=== PATIENT | male | born 2000 | race Caucasian/White ===

== ENCOUNTER 2021-11-19 09:28 | Emergency (ER) | payer MEDICAID, SELFPAY ==
--- NOTE | ~2021-11-19 | CT_ITS ---
EXAMINATION: CT abdomen pelvis w con DATE: 11/19/2021 11:05 INDICATION: Upper abdominal pain. Blood in stool. TECHNIQUE: Computed tomography (CT) of the abdomen and pelvis was performed with 100 CC Omnipaque 350 intravenous contrast. Automated exposure control and iterative reconstruction technique were employe d. Exam dose: 429.82 mGy-cm total exam DLP. COMPARISON: None. FINDINGS: The lung bases are clear. Normal heart size. No pericardial or pleural effusion. Liver, gallbladder, bile ducts, spleen, pancreas, pancreatic duct and adrenal glands as well as the k idneys appear normal. Normal caliber of the abdominal aorta. No intraperitoneal or retroperitoneal or pelvic mass lesion or adenopathy or ascites. The urinary bladder, prostate gland and seminal vesicles are unremarkable. Normal appendix. No bowel obstruction, bowel wall thickening, pneumatosis or intraperitoneal free air is detected. Included skeletal structures are unremarkable. IMPRESSION: No significant abnormality Reviewed, dictated and finalized at [facility]. Reviewed, dictated and finalized at [facility]. IMPRESSION: No significant abnormality
[2021-11-19 10:03] VITALS: BP 139/75; PULSE 74; RESP 17; TEMP 36.7; O2SAT 100
--- NOTE | 2021-11-19 10:18 | PC.NURSE ---
pt unable to provide urine sample at this time. pt refusing straight cath.
[2021-11-19 10:29] LABS: Basophils Percent Auto 0.4 % (0.2-1.2); Eosinophils Absolute Auto 0.1 K/mm3 (0-0.3); Hematocrit 43.2 % (42.0-52.0); Hemoglobin 14.8 g/dL (14.0-18.0); Immature Granulocyte Absolute 0.02 K/mm3 (0.00-0.031); Immature Granulocyte Percent A 0.3 % (0-0.5); Lymphocytes Absolute Auto 1.88 K/mm3 (0.9-3.2); Lymphocytes Percent Auto 27.5 % (18.3-44.2); Mean Corpuscular HGB Conc 34.3 g/dl (32-36); Mean Corpuscular Hemoglobin 30.4 pg (26-34); Mean Corpuscular Volume 88.7 fl (80-100); Mean Platelet Volume 10.6 fl (7.4-10.4); Monocytes Absolute Auto 0.5 K/mm3 (0.1-0.6); Monocytes Percent Auto 7.7 % (2.6-8.5); Neutrophils Absolute Auto 4.3 K/mm3 (1.3-6.7); Neutrophils Percent Auto 63.1 % (45.5-73.1); Platelet Count Result 158 k/mm3 (150-375); Red Blood Count 4.87 M/mm3 (4.6-6.20); Red Cell Distribution Width 12.6 % (11.5-14.5); White Blood Count 6.8 K/mm3 (4.5-10.0)
[2021-11-19 10:40] LABS: Prothrombin Time 12.3 Seconds (11.1-14.7)
[2021-11-19 10:41] LABS: Partial Thromboplastin Time 30.6 SECONDS (22.3-36.8)
[2021-11-19 10:45] LABS: Alanine Aminotransferase 40 U/L (6-50); Albumin Level 4.7 g/dL (3.5-5.1); Alkaline Phosphatase 66 U/L (38-126); Anion Gap 13 mmol/L (8-16); Aspartate Amino Transferase 31 U/L (17-59); Bilirubin,Total 0.3 mg/dL (0.2-1.3); Blood Urea Nitrogen 17 mg/dL (9-20); Calcium 9.1 mg/dL (8.4-10.2); Carbon Dioxide 25 mmol/L (22-30); Chloride 104 mmol/L (98-107); Estimated CRCL calculation 119 ml/min; Estimated Glomerular Filt Rate > 60; Glucose 102 mg/dL (65-110); Lipase 72 U/L (23-300); Potassium 3.9 mmol/L (3.4-5.0); Sodium 142 mmol/L (137-145)
--- NOTE | 2021-11-19 11:25 | ED.ABDPAIN ---
HPI - Abdominal Pain General Chief Complaint: Abdominal Pain Stated Complaint: abd pain Time Seen by Provider: 11/19/21 09:34 Source: RN notes reviewed History of Present Illness HPI narrative: Patient presents emerged department from home for abdominal pain. Patient states has been having intermittent abdominal pain in the upper abdomen for the past 2 months the pain is described as aching and burning in nature and it does not occur daily he states that with this he has been noticing some intermittent blood in the stool for the past month he states the blood will be bright red in nature and will be with wiping only he denies any fevers or chills nausea vomiting diarrhea or any other symptoms Related Data Allergies Allergy/AdvReac Type Severity Reaction Status Date / Time No Known Allergies Allergy Verified 11/19/21 10:08 Review of Systems Review of Systems: Gen.: Denies fevers or chills ENT: Denies congestion Respiratory: Denies shortness of breath or cough CV: Denies chest pain or palpitations GI: See HPI Musculoskeletal: Denies back pain or muscle pain Neuro: Denies numbness, tingling, weakness or focal weakness Skin: Denies rash Except as documented, all other systems reviewed and negative [facility] Past Medical History Medical History (Updated 11/19/21 @ 11:29 by Gilmar Lo DO) Patient denies significant medical history Social History Social History (Updated 11/19/21 @ 11:26 by Gilmar Lo DO) Smoking status: Never smoker Exam Narrative: APPEARANCE: No acute distress, nontoxic, resting in bed EYES: EOMI HEENT: Normocephalic, atraumatic, OMM RESPIRATORY: No respiratory distress Clear to auscultation bilaterally with no rhonchi wheezing or rales. CARDIOVASCULAR: Regular rate and rhythm without murmurs rubs or gallops. ABDOMINAL: Soft, nondistended tender palpation epigastric region no tenderness right upper quadrant, left upper quadrant, right lower quadrant left lower quadrant no rebound or guarding Rectal: No hemorrhoids or fissures small amount of soft light brown stool that is Hemoccult negative MUSCULOSKELETAl: Moves all extremities. No clubbing, cyanosis or edema. NEURO: Awake and alert. Following commands, speech normal, no focal deficits SKIN:: Warm, dry. No rashes lesions or abrasions PSYCHIATRIC: Normal affect/mood, Course Course Emergency Course: Patient states that they are feeling much better at this time. States abdominal pain has resolved. Repeat abdominal exam shows the patient's abdomen to be soft and nontender. Discussed with patient results of workup and diagnosis. Discussed need for follow-up with primary care physician, reasons to return to the emergency department in proper use of medication. Patient understands and agrees to current treatment plan. Discussed with patient need for follow-up with GI for further evaluation Vital Signs Vital signs: Vital Signs Temperature 98.1 F 11/19/21 10:03 Pulse Rate 74 11/19/21 10:03 Respiratory Rate 17 11/19/21 10:03 Blood Pressure 139/75 11/19/21 10:03 Pulse Oximetry 100 11/19/21 10:03 Oxygen Delivery Room Air 11/19/21 10:03 Temperature 98.1 F 11/19/21 10:03 Pulse Rate 74 11/19/21 10:03 Respiratory Rate 17 11/19/21 10:03 Blood Pressure 139/75 11/19/21 10:03 Pulse Oximetry 100 11/19/21 10:03 Oxygen Delivery Room Air 11/19/21 10:03 MDM - Abdominal Pain MDM Narrative Medical decision making narrative: Patient's abdomen is soft without significant pain or signs of surgical abdomen on serial exams. Lab and x-ray evaluations are reviewed and patient is felt to be a reasonable candidate for outpatient management. Patient was instructed as to limitations of x-ray and laboratory evaluation and encouraged to return to ED or primary physician for repeat exam in 12 hours if continued or worsening pain Lab Data Result diagrams: 11/19/21 10:14 11/19/21 10:14 Labs: Lab Re
[2021-11-19 11:27] VITALS: BP 132/76; PULSE 76; RESP 16; O2SAT 99
== END 2021-11-19 11:48 | disposition home or self-care (01) ==
PROVIDERS: Emergency Provider Emergency Medicine
DX: R10.13 Epigastric pain (principal); K62.5 Hemorrhage of anus and rectum
CPT/HCPCS: 36415; 74177; 80053; 83690; 85025; 85610; 85730; 99284; Q9967

== ENCOUNTER 2021-12-04 16:56 | Emergency (ER) | payer BC, SELFPAY ==
--- NOTE | ~2021-12-04 | XR_ITS ---
EXAMINATION: XR foot LT min 3V DATE: 12/04/2021 17:28 INDICATION: Left foot pain and swelling. Injury. TECHNIQUE: 4 views of left foot were obtained. COMPARISON: None. FINDINGS: Bone alignment is normal. No fracture. There is mild osteoarthritis of first metatarsophala ngeal joint. IMPRESSION: 1. Mild osteoarthritis of first metatarsophalangeal joint. Reviewed, dictated and finalized at location [facility].
--- NOTE | ~2021-12-04 | XR_ITS ---
EXAMINATION: XR wrist RT min 3V DATE: 12/04/2021 17:28 INDICATION: Right wrist clicking. TECHNIQUE: 4 views of right wrist were obtained. COMPARISON: None. FINDINGS: Bone alignment is normal. No fracture. Joint spaces are well maintained. IMPRESSION: 1. Normal right wrist. Reviewed, dictated and finalized at location [facility]. IMPRESSION: 1. Normal right wrist.
[2021-12-04 17:07] VITALS: BP 140/83; PULSE 100; RESP 20; TEMP 36.7; O2SAT 100
--- NOTE | 2021-12-04 17:12 | ED.LOWEXIN ---
HPI - Extremity Injury (Lower) General Chief Complaint: Extremity Injury, Lower Stated Complaint: Left Big Toe Pain Time Seen by Provider: 12/04/21 17:08 Source: patient and RN notes reviewed Mode of arrival: ambulatory Limitations: no limitations History of Present Illness HPI Narrative: 21-year-old male presents to [facility] with complaints of left great toe bruising for the last 2 to 3 days. States he dropped something on it 2 to 3 days ago. Pain with walking. Bruising noted. Capillary refill under 2 seconds, sensation intact. Patient also states he is concerned about clicking in his right wrist, states its been going on for quite a while. Talk to his primary who stated he may need an x-ray. Related Data Allergies Allergy/AdvReac Type Severity Reaction Status Date / Time No Known Allergies Allergy Verified 12/04/21 17:13 Review of Systems Review of Systems: All systems reviewed & are unremarkable except as noted in HPI and below Constitutional: Constitutional: Reports no additional constitutional complaints, Denies chills and Denies fever(s) Eyes: Eyes: Reports no additional eye complaints ENT: Reports system reviewed and no additional complaints, except as documented Cardiovascular: Cardiovascular: Reports no additional cardiovascular complaints Respiratory: Respiratory: Reports no additional respiratory complaints Gastrointestinal: Gastrointestinal: Reports no additional gastrointestinal complaints Musculoskeletal: Musculoskeletal: Reports as per HPI and Reports arthralgias (Right wrist, great toe left) Integumentary/Breasts: Skin/Breast: Reports system reviewed and no additional complaints, except as docu Neurologic: Reports system reviewed and no additional complaints, except as documented Psychiatric: Psychiatric: Reports no additional psychiatric complaints Allergic/Immunologic: Allergic/Immunologic: Reports no additional allergic/immunologic complaints [facility] Past Medical History Medical History (Updated 12/04/21 @ 19:22 by Adriana Salazar APRN) Patient denies significant medical history Surgical History Surgical History (Updated 12/04/21 @ 19:20 by Adriana Salazar APRN) No history of previous surgery Social History Social History Smoking status: Never smoker Comments At the time of my signature, I reviewed and agree with the nursing past medical, surgical, social, and family history. There is no relevant family history pertinent to the patient complaint. Exam Const: General: healthy appearing, no acute distress, alert and well nourished Nutritional Appearance: well nourished Orientation/consciousness: patient oriented x3 Limitations: no limitations HENMT: Head: normal to inspection Ears: external ears normal Eyes: General: appearance normal, both eyes and all related structures Pupils: Equal, round and reactive pupils present Neck: Neck: normal visual inspection, no lymphadenopathy and no meningeal signs Chest: Chest palpation & inspection: normal inspection of the chest Resp: Effort & Inspection: normal respiratory effort and no use of accessory muscles Auscultation: clear to auscultation bilaterally, no crackles, no rales, no rhonchi and no wheezes Cardio: Rate: regular rate Rhythm: regular rhythm Back/Spine/Pelvis: Cervical Spine: normal cervical lordosis Thoracic/Lumbar Spine: thoracic and lumbar spine normal to inspection Skin: General skin exam: normal color Rashes: no rashes Wounds: no wounds Neuro: General: patient oriented x3, moves all extremities, no meningeal signs and no focal motor deficits Cranial nerves: Yes Equal, round and reactive pupils present Speech: normal speech Gait exam (Neuro): Normal gait present Extrem: General: normal to inspection, full ROM and capillary refill normal Right upper extremity: wrist normal to inspection and normal ROM (with clicking); no tenderness and no swelling
== END 2021-12-04 17:42 | disposition home or self-care (01) ==
PROVIDERS: Emergency Provider Nurse Practitioner
DX: S90.112A Contusion of left great toe without damage to nail, initial encounter (principal); W20.8XXA Other cause of strike by thrown, projected or falling object, initial encounter; M19.072 Primary osteoarthritis, left ankle and foot; M25.531 Pain in right wrist
CPT/HCPCS: 73110; 73630; 99214; G0463